=== PATIENT | female | born 2005 | race Caucasian/White ===

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

== ENCOUNTER 2024-01-01 17:47 | Emergency (ER) | payer MEDICAID ==
[~2024-01-01] VITALS: Ht 157.5 cm; Wt 66.9 kg
[2024-01-01 17:52] VITALS: TEMP 99.9
[2024-01-01] MEDS ORDERED: ibuprofen tablet 400 MG TABLET PO ONE (18:00)
[2024-01-01] MEDS: ibuprofen 200mg tablet PO ONE (18:33)
[2024-01-01 20:15] VITALS: BP 99/62; PULSE 103; RESP 16; O2SAT 98
== END 2024-01-01 21:55 | disposition home or self-care (01) ==
LOC: ER 17:48
DX: B34.9 Viral infection, unspecified (principal); Z20.822 Contact with and (suspected) exposure to COVID-19; Z79.899 Other long term (current) drug therapy
CPT/HCPCS: 36415; 71045; 87502; 87503; 87811; 93005; 99285

== ENCOUNTER 2024-09-28 18:47 | Emergency (ER) | payer MEDICAID ==
[~2024-09-28] VITALS: Ht 157.5 cm; Wt 68.5 kg
[2024-09-28 20:06] VITALS: TEMP 102.8
[2024-09-28 20:34] LABS: BASOPHILS % (AUTO) 0.2 % (0-1); EOSINOPHILS % (AUTO) 0 % (0-6); HEMATOCRIT 40.5 % (35.0-45.0); LYMPHOCYTES # (AUTO) 0.8 X10'3 (1.1-4.8); LYMPHOCYTES % (AUTO) 3.8 % (21-51); MEAN CORPUSCULAR HEMOGLOBIN 28.6 PG (27.0-31.0); MEAN CORPUSCULAR HGB CONC 34.5 g/dL (33.0-36.5); MEAN CORPUSCULAR VOLUME 82.8 FL (78-98); MEAN PLATELET VOLUME 8.3 FL (7.4-10.4); MONOCYTES # (AUTO) 1.5 X10'3 (0-0.9); MONOCYTES % (AUTO) 6.9 % (2-12); NEUTROPHILS % (AUTO) 89.1 % (42-75); PLATELET COUNT 323 X10'3 (140-440); RED BLOOD COUNT 4.89 X10'6 (4.20-5.60); RED CELL DISTRIBUTION WIDTH 12.4 % (11.5-14.5); WHITE BLOOD COUNT 21.3 X10'3 (4.5-11.0)
[2024-09-28 20:44] LABS: ALANINE AMINOTRANSFERASE 26 U/L (12-78); ALBUMIN 3.9 G/DL (3.4-5.0); ALKALINE PHOSPHATASE 55 IU/L (20-180); ANION GAP 13 (8-16); ASPARTATE AMINO TRANSFERASE 11 U/L (10-37); BILIRUBIN,TOTAL 2.2 MG/DL (0.1-1.0); BLOOD UREA NITROGEN 5 MG/DL (7-18); BUN/CREATININE RATIO 5.6 (10.0-20.0); CALCIUM 8.9 MG/DL (8.5-10.1); CHLORIDE 99 MMOL/L (99-107); CREATININE 0.89 MG/DL (0.40-0.90); GLUCOSE 141 MG/DL (70-104); LIPASE 22 U/L (16-77); POTASSIUM 3.4 MMOL/L (3.5-5.1); SODIUM 134 MMOL/L (135-145); TOTAL CARBON DIOXIDE 22.4 MMOL/L (24-32); TOTAL PROTEIN 7.8 G/DL (6.4-8.2); eCRCL 80 ML/MIN; eGFR 82 ML/MIN
[2024-09-28] MEDS: acetaminophen 325mg tablet PO ONE (20:52)
[2024-09-28 21:05] LABS: BILIRUBIN,URINE NEGATIVE (Neg); CLARITY,URINE SLIGHTLY CLOUDY (Clear); COLOR,URINE YELLOW (Yellow); GLUCOSE, URINE NEGATIVE (Neg); KETONES,URINE NEGATIVE (Neg); LEUKOCYTE ESTERASE ,URINE TRACE (Neg); NITRITES, URINE NEGATIVE (Neg); OCCULT BLOOD,URINE TRACE-INTACT (Neg); PROTEIN,URINE TRACE mg/dl (Neg); UROBILINOGEN,URINE 0.2 E.U/dL (0.2-1.0)
[2024-09-28 21:06] LABS: URINE HCG NEGATIVE (NEG)
[2024-09-28 21:12] LABS: UA COLLECTION TYPE NON-SPECIFIED
[2024-09-28 21:14] LABS: BACTERIA,URINE 2+ /HPF (Neg); SQUAMOUS EPITHELIAL CELL,UR MODERATE /LPF (FEW); WBC,URINE 30-50 /HPF (0-4)
[2024-09-28] MEDS ORDERED: iohexol 300mg/ml 100ml inj. ONE (22:06)
[2024-09-28] MEDS: VANCOMYCIN 1,500MG in normal saline IV soln 300 ML IV ONE (22:10)
[2024-09-28 22:14] LABS: MAGNESIUM 1.5 MG/DL (1.5-2.4)
[2024-09-28] MEDS: CefTRIAXone 2gm/D5W 50ml BAG 50 ML IV ONE (23:03)
[2024-09-28] MEDS: ketorolac trometh 15mg/ml vial 15 MG/ML ML IV ONE (23:03)
[2024-09-28] MEDS: normal saline 1000ML IV soln IV ONE (23:04)
[2024-09-28 23:16] VITALS: BP 117/74; PULSE 121; RESP 15; O2SAT 97
[2024-09-28] MEDS ORDERED: CEPH-585 PO (23:41)
[2024-09-30] MEDS ORDERED: LIDO1ADH78 TOP (02:52)
[2024-09-30] MEDS ORDERED: IBUP-2697 PO (02:52)
[2024-09-30] MEDS ORDERED: ACET-1025 PO (02:52)
== END 2024-09-29 00:46 | disposition left against medical advice (07) ==
LOC: ER 18:48
DX: N10 Acute pyelonephritis (principal); M54.50 Low back pain, unspecified; M54.6 Pain in thoracic spine; R50.9 Fever, unspecified; Z79.899 Other long term (current) drug therapy
CPT/HCPCS: 36415; 71045; 74177; 80053; 81001; 81025; 83605; 83690; 83735; 84145; 85025; 87040; 87088; 96365; 96375; 99285; J0696; J1885; J7030; Q9967; 87077; 87186; J3370; J7040

== ENCOUNTER 2024-09-29 13:41 | Inpatient (IN) | payer MEDICAID ==
[~2024-09-29] VITALS: Ht 157.5 cm; Wt 68.2 kg
[~2024-09-29 13:41] MED LIST changes: +CEPH-585 PO
[2024-09-29 15:32] LABS: BASOPHILS # (AUTO) 0.1 X10'3 (0-0.2); BASOPHILS % (AUTO) 0.3 % (0-1); EOSINOPHILS % (AUTO) 0 % (0-6); HEMATOCRIT 34.3 % (35.0-45.0); HEMOGLOBIN 11.8 g/dl (12.0-16.0); LYMPHOCYTES # (AUTO) 1.2 X10'3 (1.1-4.8); LYMPHOCYTES % (AUTO) 4.1 % (21-51); MEAN CORPUSCULAR HEMOGLOBIN 28.5 PG (27.0-31.0); MEAN CORPUSCULAR HGB CONC 34.3 g/dL (33.0-36.5); MEAN CORPUSCULAR VOLUME 82.9 FL (78-98); MEAN PLATELET VOLUME 7.9 FL (7.4-10.4); MONOCYTES # (AUTO) 2.3 X10'3 (0-0.9); MONOCYTES % (AUTO) 8.2 % (2-12); NEUTROPHILS # (AUTO) 24.8 X10'3 (1.8-7.7); NEUTROPHILS % (AUTO) 87.4 % (42-75); PLATELET COUNT 254 X10'3 (140-440); RED BLOOD COUNT 4.14 X10'6 (4.20-5.60); RED CELL DISTRIBUTION WIDTH 12.4 % (11.5-14.5)
[2024-09-29 15:38] LABS: WHITE BLOOD COUNT 28.3 X10'3 (4.5-11.0)
[2024-09-29 15:47] LABS: ALANINE AMINOTRANSFERASE 19 U/L (12-78); ALBUMIN 3.2 G/DL (3.4-5.0); ALBUMIN/GLOBULIN RATIO 0.8 (1.1-1.5); ALKALINE PHOSPHATASE 49 IU/L (20-180); ANION GAP 10 (8-16); ASPARTATE AMINO TRANSFERASE 18 U/L (10-37); BILIRUBIN,TOTAL 1.9 MG/DL (0.1-1.0); BLOOD UREA NITROGEN 4 MG/DL (7-18); BUN/CREATININE RATIO 4.5 (10.0-20.0); CALCIUM 7.5 MG/DL (8.5-10.1); CHLORIDE 106 MMOL/L (99-107); CREATININE 0.88 MG/DL (0.40-0.90); GLUCOSE 100 MG/DL (70-104); MAGNESIUM 1.6 MG/DL (1.5-2.4); POTASSIUM 3.6 MMOL/L (3.5-5.1); SODIUM 139 MMOL/L (135-145); TOTAL CARBON DIOXIDE 23.3 MMOL/L (24-32); TOTAL PROTEIN 7.1 G/DL (6.4-8.2); eCRCL 81 ML/MIN; eGFR 83 ML/MIN
[2024-09-29 15:58] LABS: BILIRUBIN,URINE NEGATIVE (Neg); CLARITY,URINE SLIGHTLY CLOUDY (Clear); GLUCOSE, URINE NEGATIVE (Neg); KETONES,URINE NEGATIVE (Neg); LEUKOCYTE ESTERASE ,URINE NEGATIVE (Neg); NITRITES, URINE NEGATIVE (Neg); OCCULT BLOOD,URINE SMALL (Neg); PROTEIN,URINE 100 mg/dl (Neg); URINE HCG NEGATIVE (NEG)
[2024-09-29] MEDS: CefTRIAXone 2gm/D5W 50ml BAG 50 ML IV ONE (15:58)
[2024-09-29 15:59] LABS: COLOR,URINE DARK YELLOW (Yellow); UA COLLECTION TYPE CLN CATCH MIDSTREAM
[2024-09-29] MEDS: normal saline 1000ML IV soln IV ONE (15:59)
[2024-09-29] MEDS: ondansetron/PF 4mg/2ml inj IV ONE (15:59)
[2024-09-29 16:03] LABS: TOTAL CELLS COUNTED 100
[2024-09-29 16:04] LABS: PLATELET ESTIMATE NORMAL
[2024-09-29 16:07] LABS: BACTERIA,URINE FEW /HPF (Neg); MUCUS STRANDS NONE SEEN /LPF (Neg); RBC,URINE 0-2 /HPF (0-2); SQUAMOUS EPITHELIAL CELL,UR FEW /LPF (FEW)
[2024-09-29 16:08] LABS: WBC CLUMPS,URINE FEW /HPF (NEGATIVE)
[2024-09-29] MEDS: ibuprofen 200mg tablet PO ONE (17:45)
[2024-09-29] MEDS: acetaminophen 1,000mg/100ml IV 100 ML IV ONE (18:48)
[2024-09-29] MEDS: vancomycin/NS 1 GM ADD-VANTAGE 250 ML IV ONE (19:16)
[2024-09-29] MEDS ORDERED: GADOTERATE MEGLUMINE 7.5 MMOL/15 ML VIAL IV ONE (19:23)
[2024-09-29] MEDS: normal saline 1000ml 1,000 ML IV ONE (21:04)
[2024-09-29] MEDS: diphenhydrAMINE 50 mg/ml inj IV ONE (21:04)
[2024-09-29] MEDS ORDERED: magnesium sulf-water 2g/50mL 50 ML IV PRN (22:00)
[2024-09-29] MEDS ORDERED: magnesium hydroxide 30ml (MOM) UD suspension PO PRN (22:00)
[2024-09-29] MEDS ORDERED: HYDROcodone/acetaminophen 5mg/325mg tablet PO PRN (22:00)
[2024-09-29] MEDS ORDERED: potassium Cl 20 mEq SR tablet PO PRN ×2 (22:00)
[2024-09-29] MEDS ORDERED: magnesium sulf-water 4G/100mL 100 ML IV PRN (22:00)
[2024-09-29] MEDS ORDERED: magnesium Cl slow-release 64mg tablet PO PRN (22:00)
[2024-09-29] MEDS ORDERED: acetaminophen 325mg tablet PO PRN (22:00)
[2024-09-30] VITALS (7 sets, daily range): BP systolic 94–110; BP diastolic 50–66; PULSE 87–124; RESP 14–20; TEMP 97.9–102.1; O2SAT 98–99
[2024-09-30] MEDS: ondansetron/PF 4mg/2ml inj IV PRN (00:17)
[2024-09-30] MEDS: HYDROcodone/acetaminophen 10/325mg tab PO PRN (00:17)
[2024-09-30] MEDS: normal saline 1000ml 1,000 ML IV SCH (00:18)
[2024-09-30] MEDS ORDERED: IBUP-2697 PO (02:52)
[2024-09-30] MEDS ORDERED: LIDO1ADH78 TOP (02:52)
[2024-09-30] MEDS ORDERED: ACET-1025 PO (02:52)
[2024-09-30 07:31] LABS: BASOPHILS % (AUTO) 0.1 % (0-1); EOSINOPHILS % (AUTO) 0.1 % (0-6); HEMATOCRIT 32.3 % (35.0-45.0); HEMOGLOBIN 11.1 g/dl (12.0-16.0); LYMPHOCYTES # (AUTO) 2.3 X10'3 (1.1-4.8); LYMPHOCYTES % (AUTO) 10.6 % (21-51); MEAN CORPUSCULAR HEMOGLOBIN 28.4 PG (27.0-31.0); MEAN CORPUSCULAR HGB CONC 34.4 g/dL (33.0-36.5); MEAN CORPUSCULAR VOLUME 82.5 FL (78-98); MEAN PLATELET VOLUME 8.2 FL (7.4-10.4); MONOCYTES % (AUTO) 9.2 % (2-12); NEUTROPHILS # (AUTO) 17.6 X10'3 (1.8-7.7); PLATELET COUNT 265 X10'3 (140-440); RED BLOOD COUNT 3.91 X10'6 (4.20-5.60); RED CELL DISTRIBUTION WIDTH 12.4 % (11.5-14.5)
[2024-09-30 07:57] LABS: URINE AMPHETAMINE SCREEN NEGATIVE (Neg); URINE BARBITUATE SCREEN NEGATIVE (Neg); URINE BENZODIAZEPINES SCREEN NEGATIVE (Neg); URINE CANNABINOID SCREEN POSITIVE (Neg); URINE COCAINE SCREEN NEGATIVE (Neg); URINE METHADONE SCREEN NEGATIVE (Neg); URINE OPIATE SCREEN POSITIVE (Neg); URINE PHENCYCLIDINE SCREEN NEGATIVE (Neg)
[2024-09-30] MEDS: K and/or MAG REPLACEMENT MC SCH (08:00)
[2024-09-30 08:05] LABS: ALANINE AMINOTRANSFERASE 14 U/L (12-78); ALBUMIN 2.5 G/DL (3.4-5.0); ALBUMIN/GLOBULIN RATIO 0.7 (1.1-1.5); ALKALINE PHOSPHATASE 50 IU/L (20-180); ANION GAP 8 (8-16); ASPARTATE AMINO TRANSFERASE 12 U/L (10-37); BLOOD UREA NITROGEN 3 MG/DL (7-18); BUN/CREATININE RATIO 3.4 (10.0-20.0); CALCIUM 7.9 MG/DL (8.5-10.1); CHLORIDE 110 MMOL/L (99-107); CREATININE 0.89 MG/DL (0.40-0.90); GLUCOSE 79 MG/DL (70-104); MAGNESIUM 1.9 MG/DL (1.5-2.4); PHOSPHORUS 1.8 MG/DL (2.3-4.5); SODIUM 142 MMOL/L (135-145); TOTAL CARBON DIOXIDE 23.6 MMOL/L (24-32); eCRCL 80 ML/MIN; eGFR 82 ML/MIN
[2024-09-30] MEDS: acetaminophen 325mg tablet PO PRN (08:05)
[2024-09-30] MEDS: docusate sod 100mg capsule PO SCH (08:05)
[2024-09-30] MEDS: CefTRIAXone 2gm/D5W 50ml BAG 50 ML IV SCH (08:07)
[2024-09-30 08:19] LABS: POTASSIUM 2.9 MMOL/L (3.5-5.1)
[2024-09-30 08:39] LABS: APTT 32 SECONDS (22-32); INR 1.3 INR; PROTHROMBIN TIME 13.6 SECONDS (9.0-12.0)
[2024-09-30] MEDS: potassium Cl 20 mEq SR tablet PO STA (10:19)
[2024-09-30] MEDS: piperacillin/tazo 3.375gm/50ml 50 ML IV ONE (10:20)
[2024-09-30 10:29] LABS: C-REACTIVE PROTEIN 30.59 MG/DL (0.0-0.5)
[2024-09-30] MEDS: piperacillin/tazo 3.375gm/50ml 50 ML IV SCH (14:15)
[2024-09-30] MEDS: enoxaparin 40mg/0.4ml syringe SQ SCH (20:01)
[2024-10-01 06:00] VITALS: BP 106/63; PULSE 80; RESP 16; TEMP 97.9; O2SAT 16
[2024-10-01 08:28] LABS: BASOPHILS % (AUTO) 0.3 % (0-1); EOSINOPHILS # (AUTO) 0.1 X10'3 (0-0.9); EOSINOPHILS % (AUTO) 0.7 % (0-6); HEMATOCRIT 29.3 % (35.0-45.0); LYMPHOCYTES # (AUTO) 1.4 X10'3 (1.1-4.8); MEAN CORPUSCULAR HEMOGLOBIN 28.5 PG (27.0-31.0); MEAN CORPUSCULAR HGB CONC 34.3 g/dL (33.0-36.5); MEAN CORPUSCULAR VOLUME 83.2 FL (78-98); MEAN PLATELET VOLUME 8.5 FL (7.4-10.4); MONOCYTES # (AUTO) 0.7 X10'3 (0-0.9); MONOCYTES % (AUTO) 6.8 % (2-12); NEUTROPHILS # (AUTO) 8.6 X10'3 (1.8-7.7); NEUTROPHILS % (AUTO) 79.2 % (42-75); PLATELET COUNT 234 X10'3 (140-440); RED BLOOD COUNT 3.52 X10'6 (4.20-5.60); RED CELL DISTRIBUTION WIDTH 12.5 % (11.5-14.5); WHITE BLOOD COUNT 10.8 X10'3 (4.5-11.0)
[2024-10-01 08:36] LABS: APTT 32 SECONDS (22-32); INR 1.1 INR; PROTHROMBIN TIME 11.7 SECONDS (9.0-12.0)
[2024-10-01 08:50] VITALS: RESP 16
[2024-10-01 08:59] LABS: ALANINE AMINOTRANSFERASE 14 U/L (12-78); ALBUMIN 2.3 G/DL (3.4-5.0); ALBUMIN/GLOBULIN RATIO 0.7 (1.1-1.5); ALKALINE PHOSPHATASE 53 IU/L (20-180); ANION GAP 8 (8-16); ASPARTATE AMINO TRANSFERASE 6 U/L (10-37); BILIRUBIN,TOTAL 0.9 MG/DL (0.1-1.0); BLOOD UREA NITROGEN 2 MG/DL (7-18); BUN/CREATININE RATIO 2.8 (10.0-20.0); C-REACTIVE PROTEIN 23.97 MG/DL (0.0-0.5); CALCIUM 7.6 MG/DL (8.5-10.1); CHLORIDE 110 MMOL/L (99-107); CREATININE 0.72 MG/DL (0.40-0.90); MAGNESIUM 1.8 MG/DL (1.5-2.4); PHOSPHORUS 1.5 MG/DL (2.3-4.5); SODIUM 140 MMOL/L (135-145); TOTAL CARBON DIOXIDE 21.8 MMOL/L (24-32); TOTAL PROTEIN 5.7 G/DL (6.4-8.2); eCRCL 99 ML/MIN; eGFR > 90 ML/MIN
[2024-10-01 09:33] LABS: GLUCOSE 112 MG/DL (70-104)
[2024-10-01 10:00] VITALS: BP 111/65; PULSE 92; RESP 16; TEMP 98.4; O2SAT 96
[2024-10-01 10:10] LABS: POTASSIUM 2.8 MMOL/L (3.5-5.1)
[2024-10-01] MEDS: metoclopramide 5 mg/ml inj IV PRN (10:38)
[2024-10-01] MEDS: potassium Cl 40MEQ/1/2NS 520ml 520 ML IV PRN (10:59)
[2024-10-01] MEDS: morphine 2 MG/ML inj. syringe IV PRN (13:06)
[2024-10-01 18:00] VITALS: BP 120/77; PULSE 85; RESP 16; TEMP 98.1; O2SAT 100
[2024-10-01 21:33] VITALS: BP 120/76; PULSE 84; RESP 16; TEMP 97.9; O2SAT 99
[2024-10-01] MEDS: mag hydrox/Alum hydrox/simeth 30ml oral suspension PO PRN (23:56)
[2024-10-02 06:00] VITALS: BP 104/59; PULSE 98; RESP 16; TEMP 99; O2SAT 94
[2024-10-02 06:24] LABS: BASOPHILS % (AUTO) 0.5 % (0-1); EOSINOPHILS # (AUTO) 0.1 X10'3 (0-0.9); HEMATOCRIT 30.3 % (35.0-45.0); HEMOGLOBIN 10.4 g/dl (12.0-16.0); LYMPHOCYTES # (AUTO) 1.4 X10'3 (1.1-4.8); MEAN CORPUSCULAR HEMOGLOBIN 28.5 PG (27.0-31.0); MEAN CORPUSCULAR HGB CONC 34.3 g/dL (33.0-36.5); MEAN CORPUSCULAR VOLUME 82.9 FL (78-98); MEAN PLATELET VOLUME 8.4 FL (7.4-10.4); MONOCYTES # (AUTO) 0.9 X10'3 (0-0.9); MONOCYTES % (AUTO) 12.3 % (2-12); NEUTROPHILS # (AUTO) 5.2 X10'3 (1.8-7.7); NEUTROPHILS % (AUTO) 68.2 % (42-75); PLATELET COUNT 282 X10'3 (140-440); RED BLOOD COUNT 3.65 X10'6 (4.20-5.60); RED CELL DISTRIBUTION WIDTH 12.6 % (11.5-14.5); WHITE BLOOD COUNT 7.6 X10'3 (4.5-11.0)
[2024-10-02 06:49] LABS: APTT 31 SECONDS (22-32)
[2024-10-02 07:04] LABS: ALANINE AMINOTRANSFERASE 15 U/L (12-78); ALBUMIN 2.4 G/DL (3.4-5.0); ALBUMIN/GLOBULIN RATIO 0.6 (1.1-1.5); ALKALINE PHOSPHATASE 53 IU/L (20-180); ANION GAP 7 (8-16); ASPARTATE AMINO TRANSFERASE 10 U/L (10-37); BILIRUBIN,TOTAL 0.9 MG/DL (0.1-1.0); BLOOD UREA NITROGEN 3 MG/DL (7-18); BUN/CREATININE RATIO 4.7 (10.0-20.0); CALCIUM 8.1 MG/DL (8.5-10.1); CHLORIDE 107 MMOL/L (99-107); CREATININE 0.64 MG/DL (0.40-0.90); GLUCOSE 82 MG/DL (70-104); PHOSPHORUS 1.8 MG/DL (2.3-4.5); POTASSIUM 3.5 MMOL/L (3.5-5.1); SODIUM 139 MMOL/L (135-145); TOTAL CARBON DIOXIDE 24.6 MMOL/L (24-32); TOTAL PROTEIN 6.3 G/DL (6.4-8.2); eCRCL 112 ML/MIN; eGFR > 90 ML/MIN
[2024-10-02] MEDS ORDERED: CIPR-202 PO (08:44)
[2024-10-02] MEDS ORDERED: ONDA-243 PO (08:48)
[2024-10-02 09:55] VITALS: RESP 16
[2024-10-02 10:00] VITALS: BP 118/81; PULSE 86; RESP 16; TEMP 98.2; O2SAT 98
[2024-10-02 11:26] LABS: PROTHROMBIN TIME 11.4 SECONDS (9.0-12.0)
[2024-10-02 11:27] LABS: INR 1.1 INR
[2024-10-02] MEDS ORDERED: HYDR-3965 PO (11:38)
== END 2024-10-02 11:20 | disposition home or self-care (01) | DRG 720 ==
LOC: ER 13:42 → ED HOLD 22:02 → EDBEDREQ 09-30 00:33 → ORTHO 4S 09-30 01:11
PROVIDERS: ADMIT Internal Medicine Pulmonary Disease; ATTEND Nurse Practitioner Family
DX: A41.9 Sepsis, unspecified organism (principal); M51.24 Other intervertebral disc displacement, thoracic region; E87.6 Hypokalemia; G89.29 Other chronic pain; N10 Acute pyelonephritis; M43.16 Spondylolisthesis, lumbar region; M51.360 Other intervertebral disc degeneration, lumbar region with discogenic back pain only; M48.061 Spinal stenosis, lumbar region without neurogenic claudication
CPT/HCPCS: 36415; 72157; 72158; 80053; 80305; 81001; 81025; 83605; 83735; 84100; 84132; 84145; 85007; 85025; 85610; 85730; 86140; 87040; 87081; 87088; 87502; 87503; 93005; 96365; 96367; 96375; 99291; A6250; A9575; G0378; J0131; J0696; J1200; J1650; J2270; J2405; J2543; J2765; J3370; J3480; J7030